=== PATIENT | female | born 1975 | race African-American/Black ===

== ENCOUNTER 2017-01-09 09:49 | Inpatient (IN) | payer MEDICAID ==
[~2017-01-09] VITALS: Ht 160 cm; Wt 91.6 kg
[~2017-01-09 09:49] MED LIST: ATEN50TA OR; FURO40TA4 OR; MORP60TA34 OR; PHEN100C70 OR; POTA8TAB2 OR; PROMETHAZINE; SERAQUEL; SERT-135 OR
[2017-01-09] MEDS ORDERED: MORPHINE SULFATE 4 MG/ML SYRG IV ONE (11:15)
[2017-01-09] MEDS ORDERED: SODIUM CHLORIDE 0.9% 1,000 ML IV ONE (11:15)
[2017-01-09] MEDS ORDERED: ONDANSETRON HCL 4 MG/2 ML VIAL IV ONE ×2 (11:15→12:00)
[2017-01-09 11:39] LABS: Urine RBC None Seen /hpf (0 - 4)
[2017-01-09] MEDS ORDERED: HYDROmorphone HCL 2 MG/ML VL IV ONE (12:00)
[2017-01-09 12:16] LABS: Urine Bilirubin Negative (Negative); Urine Blood Negative /uL (Negative); Urine Color Yellow (Yellow); Urine Glucose Normal (Normal); Urine Ketone Negative (Negative); Urine Nitrite Negative (Negative); Urine Squamous Epithelial Cell FEW /hpf (<5); Urine Urobilinogen Normal (Negative); Urine pH 6.5 (5.0-8.0)
[2017-01-09 12:25] LABS: Basophils # (auto) 0.2 uL; Basophils % (auto) 1.3 % (0.0-2.0); Eosinophils # (auto) 0.1 uL; Eosinophils % (auto) 0.7 % (0.0-7.0); Hematocrit 41.2 % (36.0-46.0); Hemoglobin 13.8 g/dL (12.2-16.2); Lymphocytes % (auto) 29.9 % (10.0-50.0); Mean Corpuscular Hemoglobin 27.5 pg (28.0-32.0); Mean Corpuscular Hgb Conc. 33.5 g/dL (32.0-36.0); Mean Corpuscular Volume 81.8 fL (80.0-100.0); Mean Platelet Volume 8.2 fL (7.4-10.4); Monocytes # (auto) 1.1 uL; Monocytes % (auto) 8.5 % (0.0-12.0); Neutrophils % (auto) 59.6 % (37.0-80.0); Platelet Count (auto) 385 10^3/uL (140-450); Red Cell Distribution Width 14.2 % (11.6-16.0); SUSPECT VIEW TRANSMISSION; White Blood Cell 13.4 10^3/uL (4.4-10.8)
[2017-01-09 12:42] LABS: Albumin 4.4 g/dL (3.4-5.0); BUN/Creatinine Ratio 8.5; Calcium 9.1 mg/dL (8.5-10.1); Potassium 4.1 mmol/L (3.5-5.1)
[2017-01-09 12:43] LABS: INR 0.97 (0.9-1.15); Prothrombin Time 10.5 sec (9.37-12.3)
[2017-01-09 12:45] LABS: Bilirubin, Total 0.4 mg/dL (0.2-1.0); Total Protein 8.1 g/dL (6.4-8.2)
[2017-01-09 14:45] LABS: Platelet Estimate Adequate
[2017-01-09] MEDS ORDERED: LIDOCAINE 2%HCL (LOCAL ANESTH.) INJ 20ML MDV ONE (16:03)
[2017-01-09] MEDS ORDERED: cefTRIAXone 1GM/50ML D5W 50 ML IV ONE ×2 (16:45→18:45)
[2017-01-09] MEDS ORDERED: KETOROLAC TROMETH 30 MG/ML 1ML VIAL IV ONE (17:00)
[2017-01-09 18:43] LABS: TUBE NUMBER TUBE 3
[2017-01-09] MEDS ORDERED: DEXAMETHASONE SOD PHOS 10MG/1ML VIAL INJ IV ONE (18:45)
[2017-01-09] MEDS: SODIUM CHLORIDE 0.9% 1,000 ML IV SCH ×3 (19:07→23:59)
[2017-01-09] MEDS ORDERED: HYDROcodone-ACET 5/325MG TAB PO PRN (19:30)
[2017-01-09] MEDS ORDERED: ALBUTEROL SULF 2.5 MG/0.5ML(0.5%) NEB SOLN NEB PRN (19:30)
[2017-01-09] MEDS ORDERED: MORPHINE SULF INJ 2 MG/ML SYRINGE 1ML IV PRN (19:30)
[2017-01-09] MEDS ORDERED: LORazepam 0.5 MG TAB PO PRN (19:30)
[2017-01-09] MEDS ORDERED: LORazepam 2MG/ML-1ML VIAL IV PRN (19:30)
[2017-01-09] MEDS ORDERED: ACETAMINOPHEN 500 MG TAB PO PRN (19:30)
[2017-01-09] MEDS ORDERED: NITROGLYCERIN 0.4 MG SL TAB SL PRN (19:30)
[2017-01-09] MEDS ORDERED: LACTULOSE 20Gm/30ML SOLN PO PRN (19:30)
[2017-01-09] MEDS ORDERED: TEMAZEPAM 15 MG CAP PO PRN (19:30)
[2017-01-09 22:10] VITALS: BP 158/84
[2017-01-09] MEDS: DEXAMETHASONE INJECTION 10 MG in D5W 5% 50 ML IV SCH (22:29)
[2017-01-09] MEDS: METOCLOPRAMIDE HCL 10 MG TAB PO SCH (22:29)
[2017-01-09] MEDS: MORPHINE SULF 30 mg ER tab PO SCH (22:29)
[2017-01-09] MEDS: lamoTRIgine 100 MG TAB PO SCH (22:29)
[2017-01-09 22:53] VITALS: BP 158/84
[2017-01-09 23:14] LABS: Urine Bilirubin Negative (Negative); Urine Blood Negative /uL (Negative); Urine Glucose Normal (Normal); Urine Ketone Negative (Negative); Urine Nitrite Negative (Negative); Urine RBC <1 /hpf (0 - 4); Urine Urobilinogen Normal (Negative); Urine pH 7.5 (5.0-8.0)
[2017-01-09 23:15] LABS: Urine Color Straw (Yellow)
[2017-01-09 23:38] VITALS: BP 158/84
[2017-01-10] MEDS ORDERED: LAMO200T2 PO (00:19)
[2017-01-10] MEDS ORDERED: NOR5T PO (00:19)
[2017-01-10] MEDS ORDERED: AMIT25TA9 PO (00:19)
[2017-01-10] MEDS ORDERED: PANT1INJ3 PO (00:19)
[2017-01-10] MEDS: MORPHINE SULFATE 4 MG/ML SYRG IV PRN ×2 (03:48→11:34)
[2017-01-10 05:50] VITALS: BP 138/89
[2017-01-10] MEDS: METOCLOPRAMIDE HCL 10 MG TAB PO SCH ×3 (05:58→22:05)
[2017-01-10] MEDS: SODIUM CHLORIDE 0.9% 1,000 ML IV SCH (07:48)
[2017-01-10 09:19] VITALS: BP 151/92
[2017-01-10] MEDS: lamoTRIgine 100 MG TAB PO SCH ×2 (09:58→22:06)
[2017-01-10] MEDS: MORPHINE SULF 30 mg ER tab PO SCH ×2 (09:59→22:06)
[2017-01-10 13:00] VITALS: BP 146/99
[2017-01-10] MEDS ORDERED: PROCHLORPERAZINE EDISYLATE 5 MG/ML 2ML VIAL IM PRN (13:45)
[2017-01-10 13:53] LABS: Basophils # (auto) 0.1 uL; Basophils % (auto) 0.7 % (0.0-2.0); DEFINITIVE VIEW TRANSMISSION; Eosinophils # (auto) 0 uL; Hematocrit 41.8 % (36.0-46.0); Hemoglobin 13.4 g/dL (12.2-16.2); Lymphocytes # (auto) 1.6 uL; Lymphocytes % (auto) 12.7 % (10.0-50.0); Mean Corpuscular Hemoglobin 26.8 pg (28.0-32.0); Mean Corpuscular Volume 83.7 fL (80.0-100.0); Mean Platelet Volume 7.8 fL (7.4-10.4); Monocytes # (auto) 0.6 uL; Monocytes % (auto) 4.4 % (0.0-12.0); Neutrophils # (auto) 10.5 uL; Neutrophils % (auto) 82.2 % (37.0-80.0); Platelet Count (auto) 524 10^3/uL (140-450); Red Cell Distribution Width 14.4 % (11.6-16.0); White Blood Cell 12.8 10^3/uL (4.4-10.8)
[2017-01-10 14:24] LABS: BUN/Creatinine Ratio 9.9; Bilirubin, Total 0.3 mg/dL (0.2-1.0); Calcium 9.4 mg/dL (8.5-10.1); Total Protein 8.4 g/dL (6.4-8.2)
[2017-01-10] MEDS ORDERED: methylPREDNISolone SOD SUCC 125 MG/2 ML VL IV ONE (16:30)
[2017-01-10 17:11] VITALS: BP 146/85
[2017-01-10] MEDS: METHOCARBAMOL 500 MG TAB PO SCH ×2 (17:46→22:06)
[2017-01-10] MEDS: PROCHLORPERAZINE EDISYLATE 5 MG/ML 2ML VIAL IV PRN (17:49)
[2017-01-10 21:54] VITALS: BP 146/89
[2017-01-10] MEDS: DEXAMETHASONE INJECTION 10 MG in D5W 5% 50 ML IV SCH (22:06)
[2017-01-11] MEDS: SODIUM CHLORIDE 0.9% 1,000 ML IV SCH ×2 (02:00→08:48)
[2017-01-11] MEDS: PROCHLORPERAZINE EDISYLATE 5 MG/ML 2ML VIAL IV PRN ×2 (02:09→12:27)
[2017-01-11] MEDS: KETOROLAC TROMETH 30 MG/ML 1ML VIAL IV PRN ×2 (02:09→09:47)
[2017-01-11 04:53] VITALS: BP 149/88
[2017-01-11] MEDS: METHOCARBAMOL 500 MG TAB PO SCH ×2 (06:06→12:16)
[2017-01-11] MEDS: METOCLOPRAMIDE HCL 10 MG TAB PO SCH ×2 (06:06→14:00)
[2017-01-11] MEDS: MORPHINE SULFATE 4 MG/ML SYRG IV PRN ×2 (06:07→12:19)
[2017-01-11 09:30] VITALS: BP 150/89
[2017-01-11] MEDS: MORPHINE SULF 30 mg ER tab PO SCH (09:42)
[2017-01-11] MEDS: lamoTRIgine 100 MG TAB PO SCH (09:42)
[2017-01-11 13:00] VITALS: BP 166/103
[2017-01-11 13:20] VITALS: BP 156/94
[2017-01-11 14:59] VITALS: BP 156/94
[2017-01-11 21:18] LABS: HSV-1 DNA CSF Negative (Negative)
== END 2017-01-11 15:10 | disposition home or self-care (01) | DRG 54 ==
LOC: ER 09:56 → TELE 09:57 → TELE-EAST 21:52
PROVIDERS: ADMIT Internal Medicine; ATTEND Internal Medicine
PROC: 009U3ZX Drainage of Spinal Canal, Percutaneous Approach, Diagnostic (ICD-10-PCS; principal; 2017-01-09)
PROC: B01B1ZZ Fluoroscopy of Spinal Cord using Low Osmolar Contrast (ICD-10-PCS; 2017-01-09)
DX: G43.901 Migraine, unspecified, not intractable, with status migrainosus (principal); G40.409 Other generalized epilepsy and epileptic syndromes, not intractable, without status epilepticus; I15.9 Secondary hypertension, unspecified; E78.5 Hyperlipidemia, unspecified; G44.40 Drug-induced headache, not elsewhere classified, not intractable; G89.29 Other chronic pain; Z82.0 Family history of epilepsy and other diseases of the nervous system; Z86.73 Personal history of transient ischemic attack (TIA), and cerebral infarction without residual deficits; Z88.5 Allergy status to narcotic agent; Z98.51 Tubal ligation status
CPT/HCPCS: 36415; 62272; 70450; 71010; 76000; 80053; 80061; 80307; 81001; 82550; 82945; 84157; 84443; 85025; 85610; 85652; 87070; 87205; 87529; 89051; 96361; 96365; 96375; 96376; 99291; J0696; J1100; J1885; J2405; J7060

== ENCOUNTER 2018-07-02 12:05 | Emergency (ER) | payer MEDICAID ==
[~2018-07-02] VITALS: Ht 162.6 cm; Wt 86.2 kg
[~2018-07-02 12:05] MED LIST changes: +AMIT25TA9 PO; -ATEN50TA OR; -FURO40TA4 OR; +HYDR-4683 PO; +LAMO200T2 PO; +PANT1INJ3 PO; -PHEN100C70 OR; -SERAQUEL; -SERT-135 OR
[2018-07-02] MEDS ORDERED: ONDANSETRON ODT 4 MG TAB PO ONE (12:45)
[2018-07-02] MEDS ORDERED: IBUPROFEN 800 MG TAB PO ONE (13:30)
[2018-07-02 14:29] VITALS: BP 138/78
== END 2018-07-02 14:42 | disposition home or self-care (01) ==
LOC: ER 12:05
DX: S86.912A Strain of unspecified muscle(s) and tendon(s) at lower leg level, left leg, initial encounter (principal); E78.5 Hyperlipidemia, unspecified; I10 Essential (primary) hypertension; Z88.6 Allergy status to analgesic agent; Z88.0 Allergy status to penicillin; Z79.899 Other long term (current) drug therapy; Z90.710 Acquired absence of both cervix and uterus; Z86.73 Personal history of transient ischemic attack (TIA), and cerebral infarction without residual deficits; X58.XXXA Exposure to other specified factors, initial encounter; Y93.89 Activity, other specified; Y99.8 Other external cause status; Y92.89 Other specified places as the place of occurrence of the external cause
CPT/HCPCS: 93971; 99284; Q0162

== ENCOUNTER 2018-11-03 10:34 | Emergency (ER) | payer MEDICAID ==
[~2018-11-03] VITALS: Ht 160 cm; Wt 82.6 kg
[2018-11-03 11:48] VITALS: BP 144/91
[2018-11-03] MEDS ORDERED: diphenhdrAMINE HCL 50 MG/1 ML VL IM ONE (12:30)
[2018-11-03] MEDS ORDERED: ONDANSETRON ODT 4 MG TAB PO ONE (12:30)
[2018-11-03] MEDS ORDERED: KETOROLAC TROMETH 60MG/2ML VIAL IM ONE (12:30)
== END 2018-11-03 13:07 | disposition home or self-care (01) ==
LOC: ER 10:34
DX: G43.909 Migraine, unspecified, not intractable, without status migrainosus (principal); E78.5 Hyperlipidemia, unspecified; I10 Essential (primary) hypertension; Z86.73 Personal history of transient ischemic attack (TIA), and cerebral infarction without residual deficits; Z90.710 Acquired absence of both cervix and uterus
CPT/HCPCS: 70450; 96372; 99284; J1200; J1885; Q0162

== ENCOUNTER 2019-06-29 10:25 | Emergency (ER) | payer MEDICAID ==
[~2019-06-29] VITALS: Ht 165.1 cm; Wt 93.4 kg
[~2019-06-29 10:25] MED LIST changes: -HYDR-4683 PO; +HYDR-4833 PO
[2019-06-29 10:40] VITALS: BP 148/90
== END 2019-06-29 13:08 | disposition home or self-care (01) ==
LOC: ER 10:25
DX: S90.562A Insect bite (nonvenomous), left ankle, initial encounter (principal); E78.5 Hyperlipidemia, unspecified; I10 Essential (primary) hypertension; Z88.0 Allergy status to penicillin; Z88.8 Allergy status to other drugs, medicaments and biological substances; Z79.899 Other long term (current) drug therapy; Z86.73 Personal history of transient ischemic attack (TIA), and cerebral infarction without residual deficits; Z90.710 Acquired absence of both cervix and uterus; L08.9 Local infection of the skin and subcutaneous tissue, unspecified; W57.XXXA Bitten or stung by nonvenomous insect and other nonvenomous arthropods, initial encounter; Y93.89 Activity, other specified; Y99.8 Other external cause status; Y92.89 Other specified places as the place of occurrence of the external cause